=== PATIENT | female | born 1990 | race Caucasian/White ===

== ENCOUNTER 2019-12-25 11:48 | Emergency (ER) | payer MEDICAID, OTHER ==
[~2019-12-25] VITALS: Ht 160 cm; Wt 63.5 kg
[2019-12-25 12:05] VITALS: BP 130/103
== END 2019-12-25 13:30 | disposition left against medical advice (07) ==
LOC: ER 11:48
DX: H53.8 Other visual disturbances (principal); R20.2 Paresthesia of skin; R11.0 Nausea; R51 Headache; Z53.21 Procedure and treatment not carried out due to patient leaving prior to being seen by health care provider
CPT/HCPCS: 93005

== ENCOUNTER 2021-04-21 13:11 | Emergency (ER) | payer MEDICAID ==
[~2021-04-21] VITALS: Ht 157.5 cm; Wt 59.0 kg
[2021-04-21 15:20] VITALS: BP 133/90
[2021-04-21] MEDS ORDERED: DONNATAL 5ml ORAL Elix (BELLADONNA ALK-PHENOBARB) PO ONE (16:00)
[2021-04-21] MEDS ORDERED: LIDOCAINE VISCOUS 2% 15ML UD PO ONE (16:00)
[2021-04-21] MEDS ORDERED: ALUM & MAG HYDROX-SIMETH LIQ(MAALOX) 30 ML PO ONE (16:00)
== END 2021-04-21 16:36 | disposition home or self-care (01) ==
LOC: ER 13:11
DX: K21.9 Gastro-esophageal reflux disease without esophagitis (principal)

== ENCOUNTER 2021-11-25 12:15 | Emergency (ER) | payer MEDICAID ==
[~2021-11-25] VITALS: Ht 157.5 cm; Wt 63.0 kg
[2021-11-25 12:53] VITALS: BP 143/84
[2021-11-25] MEDS ORDERED: PROM1SOL4 PO (13:10)
[2021-11-25] MEDS ORDERED: CEPH250S41 PO (13:10)
== END 2021-11-25 13:30 | disposition home or self-care (01) ==
LOC: ER 12:15
DX: J02.9 Acute pharyngitis, unspecified (principal)